=== PATIENT | male | born 1990 | race Asian ===

== ENCOUNTER 2019-02-20 20:27 | Emergency (ER) | payer SELFPAY ==
[~2019-02-20] VITALS: Ht 182.9 cm; Wt 83.8 kg
[2019-02-20 20:36] VITALS: Ht 182.9 cm; Wt 83.8 kg
--- NOTE | 2019-02-21 00:28 | ERD ---
ER Documentation Chief Complaint Chief Complaint ALLERGIC REACTION X'S 3 DAYS HPI 28-year-old male, presents the emergency department, complaining of a sudden onset of erythematous and pruritic rash predominantly on the face upper extremity and upper trunk after eating food 3 days ago. The patient states that he has eaten there before but has never had a reaction like this. The patient denies shortness of breath, no lip or tongue swelling, no cough, no sore throat, no difficulty swallowing. The patient has been taking Benadryl with mild improvement of the symptoms. ROS All systems reviewed and are negative except as per history of present illness. Medications Home Meds Active Scripts Diphenhydramine Hcl* (Benadryl*) 50 Mg Cap, 50 MG PO Q6H PRN for ITCHING/RASH, #15 CAP Prov:ALESSANDRO VAZQUEZ MD 02/21/19 Prednisone* (Prednisone*) 20 Mg Tab, 60 MG PO DAILY for 5 Days, TAB Prov:ALESSANDRO VAZQUEZ MD 02/21/19 Allergies Allergies: Coded Allergies: No Known Allergy (Unverified , 02/20/19) PMhx/Soc Medical and Surgical Hx: pt denies Surgical Hx Hx Respiratory Disorders: Yes (ASTHMA) Hx Alcohol Use: No Hx Substance Use: No Hx Tobacco Use: Yes Smoking Status: Current some day smoker Physical Exam Vitals Vital Signs Date Temp Pulse Resp B/P (MAP) Pulse Ox O2 O2 Flow FiO2 Time Delivery Rate 02/21/19 98.8 66 18 131/81 97 Room Air 01:47 (98) 02/20/19 98.2 82 18 148/76 99 20:36 (100) Physical Exam Patient alert, oriented, vital signs stable. HEENT: Normocephalic, atraumatic. EYES: PERRLA, EOMI, Sclera and conjunctiva appear normal. EARS: Canals clear, tympanic membranes WNL. THROAT: Normal oropharynx. NECK: Supple, No lymphadenopathy. Full ROM without pain or tenderness. HEART: RRR, no rubs, murmurs, clicks or gallops. LUNGS: Clear to auscultation. ABDOMEN: Soft, non-tender without masses or hepatosplenomegaly. EXTREMITIES: No edema bilaterally. BACK: Full ROM, no deformity, normal back exam NEURO: Cranial nerves grossly intact, no motor or sensory deficit SKIN: Urticarial rash predominantly in the face, upper extremities and upper trunk. Results 24 hrs Laboratory Tests Test 02/21/19 00:40 Urine Color YELLOW Urine Clarity SLIGHTLY CLOUDY Urine pH 6.0 Urine Specific [place] 1.017 Urine Ketones NEGATIVE mg/dL Urine Nitrite NEGATIVE mg/dL Urine Bilirubin NEGATIVE mg/dL Urine Urobilinogen NEGATIVE mg/dL Urine Leukocyte Esterase NEGATIVE Oumar/ul Urine Microscopic RBC 0 /HPF Urine Microscopic WBC 1 /HPF Urine Amorphous Crystals FEW /HPF Urine Bacteria FEW /HPF Urine Hemoglobin NEGATIVE mg/dL Urine Glucose NEGATIVE mg/dL Urine Total Protein NEGATIVE mg/dl Current Medications Medications Dose Sig/Doug Start Time Status Last (Trade) Ordered Route PRN Stop Time Admin Dose Reason Admin 125 mg ONCE ONCE 02/21/19 DC 02/21/19 Methylprednis IM 01:00 02/21/19 01:26 olone Sodium 01:01 Succinate (Solu-Medrol) 50 mg ONCE ONCE 02/21/19 DC 02/21/19 Diphenhydrami IM 01:00 02/21/19 01:27 ne HCl 01:01 (Benadryl) Procedures/MDM Differential diagnosis include but not limited to: Viral exanthema, acute allergic reaction, autoimmune dermatitis, medication side effect, low suspicion for angioedema, anaphylactic shock, Owens-Louie syndrome. Physical examination and clinical presentation consistent most likely with acute allergic urticaria During the ED course the patient remained hemodynamically stable stable, no new complaints. The patient received treatment with IM. steroids, IM Benadryl presenting overall improvement of the symptoms. Results and clinical impression discussed with the patient who agrees with management. The patient is stable to be treated outpatient and will be discharged home with a Rx for prednisone and Benadryl, some side effects of prescribed medications (headache, rash, nausea, vomiting, diarrhea, drowsiness, interactions with other medications) were reviewed. The patient was instructed to follow up with the primary care provider in the n ext 48h. If symptoms persist, worsen or new symptoms develop, then patient should return to the ED immediately. Instructions explained and given directly by me with acknowledgment and demonstrated understanding. Disclaimer: Inadvertent spelling and grammatical errors are likely due to EHR/dictation software use and do not reflect on the overall quality of patient care. Also, please note that the electronic time recorded on this note does not necessarily reflect the actual time of the patient encounter. Departure Diagnosis: Primary Impression: Allergic reaction Condition: Stable Additional Instructions: Thank you very much for allowing us to participate in your care. Your health and safety is our top priority at [facility]. Call your primary care doctor TOMORROW for an appointment during the next 2-4 days and bring all the information and medications prescribed. Have prescriptions filled and follow precisely the directions on the label. If the symptoms get worse and your provider is unavailable, return to the Emergency Department immediately. ALESSANDRO VAZQUEZ MD Feb 21, 2019 00:28
[2019-02-21] MEDS ORDERED: DIPHENHYDRAMINE 50 MG INJ IM ONE (01:00)
[2019-02-21] MEDS ORDERED: METHYLPREDNISOLONE 125 MG INJ IM ONE (01:00)
[2019-02-21] MEDS ORDERED: PRED20TA PO (01:09)
[2019-02-21] MEDS ORDERED: BEN50 PO (01:09)
[2019-02-21 01:47] VITALS: BP 131/81; PULSE 66; RESP 18
== END 2019-02-21 01:49 | disposition home or self-care (01) ==
LOC: FTE 20:27
DX: T78.1XXA Other adverse food reactions, not elsewhere classified, initial encounter (principal); J45.909 Unspecified asthma, uncomplicated; F17.210 Nicotine dependence, cigarettes, uncomplicated; L50.9 Urticaria, unspecified
CPT/HCPCS: 81001; J1200; J2930; 81003; 96372